=== PATIENT | male | born 1985 | race Caucasian/White ===

== ENCOUNTER 2020-07-26 14:02 | Outpatient (REF) | payer OTHER, SELFPAY ==
[2020-07-26 19:18] LABS: Anion Gap 8.1 mmol/L (3-11); BUN 18 mg/dL (7-18); CO2 28.9 mmol/L (21.0-32.0); CREATININE 1.15 mg/dL (0.70-1.30); Calcium 9.1 mg/dL (8.5-10.1); Calculated LDL 99 mg/dL (<100); Chloride 103 mmol/L (98-107); Cholesterol 169 mg/dL (<200); Glucose 88 mg/dL (74-106); HDL Cholesterol 63 mg/dL (40-60); Potassium 4.7 mmol/L (3.5-5.1); Sodium 140 mmol/L (136-145); Triglyceride 37 mg/dL (<150)
== END 2020-07-26 14:22 ==
LOC: NCHCN 14:02
PROVIDERS: PCP Nurse Practitioner; Visit Provider Physician Assistant
DX: Z13.220 Encounter for screening for lipoid disorders (principal)
CPT/HCPCS: 80048; 80061

== ENCOUNTER 2021-08-27 03:09 | Outpatient (CLI) | payer OTHER, SELFPAY ==
[2021-08-27 07:38] LABS: Abs Immature Grans 0.05 10^3/uL (0.0-0.06); Absolute Basophil Count 0.04 10^3/uL (0.0-0.2); Absolute Eosinophil Count 0.19 10^3/uL (0.0-0.7); Absolute Lymphocyte Count 4.26 10^3/uL (1.2-3.4); Absolute Monocyte Count 0.83 10^3/uL (0.1-0.8); Absolute Neutrophil Count 3.87 10^3/uL (1.2-6.7); Basophils % 0.4; Eosinophils % 2.1; HCT 47.6 % (40.0-50.0); HGB 15.7 g/dL (13.5-17.5); Immature Grans % 0.5; Lymphocytes % 46.1; MPV 10.2 fL (8.0-11.0); Neutrophils % 41.9; Nucleated RBC 0 %; Platelet Count 259 10^3/uL (130-400); RBC 5.23 10^6/uL (4.36-5.78); RDW 13.4 % (11.8-14.1); RDW-SD 45.3 fL; WBC 9.24 10^3/uL (4.4-10.8)
[2021-08-27 07:56] LABS: ESR < 1 mm/hr (0-15)
[2021-08-27 09:24] LABS: ALT 33 U/L (16-63); AST 16 U/L (15-37); Albumin 3.9 g/dL (3.4-5.0); Alkaline Phosphatase 62 U/L (46-116); Anion Gap 5.8 mmol/L (3-11); BUN 15 mg/dL (7-18); Bilirubin, Total 0.6 mg/dL (0.2-1.0); CO2 32.2 mmol/L (21.0-32.0); CREATININE 1.2 mg/dL (0.70-1.30); Calcium 9.1 mg/dL (8.5-10.1); Chloride 102 mmol/L (98-107); Glucose 96 mg/dL (74-106); Potassium 4.4 mmol/L (3.5-5.1); Sodium 140 mmol/L (136-145); TSH (W/Ref FT4) 2.66 uIU/mL (0.36-3.74)
[2021-08-27 09:58] LABS: C-Reactive Protein 0.06 mg/dL (0.0-0.3); Uric Acid 5.4 mg/dL (3.5-7.2)
[2021-08-27 16:15] LABS: Rheumatoid Factor <8.6 IU/mL (<12.0)
[2021-08-28 11:27] LABS: Lyme Ab w Rflx to Lyme Confirm Negative (Negative)
[2021-08-28 12:25] LABS: Hepatitis C Ab w Rflx HCV PCR Negative (Negative)
[2021-08-28 14:38] LABS: HIV-1/2 Ag & Ab Screen Negative (Negative)
== END 2021-08-27 03:10 | disposition home or self-care (01) ==
LOC: LBO 03:10
PROVIDERS: PCP Family Medicine; Visit Provider Family Medicine
DX: M19.049 Primary osteoarthritis, unspecified hand (principal); Z11.59 Encounter for screening for other viral diseases; Z13.6 Encounter for screening for cardiovascular disorders; I10 Essential (primary) hypertension; Z11.4 Encounter for screening for human immunodeficiency virus [HIV]
CPT/HCPCS: 36415; 80053; 85652; 86803; 87389; 84443; 84550; 85025; 86140; 86431; 86618

== ENCOUNTER 2021-11-28 07:53 | Outpatient (REF) | payer OTHER, SELFPAY ==
[2021-12-01 22:02] LABS: Pancreatic Elastase, F >500 mcg/g
[2021-12-01 22:10] LABS: Calprotectin <50.0 mcg/g
== END 2021-11-28 07:54 | disposition home or self-care (01) ==
LOC: LBN 07:53
PROVIDERS: PCP Family Medicine; Visit Provider Nurse Practitioner Family
DX: R19.7 Diarrhea, unspecified (principal); K58.0 Irritable bowel syndrome with diarrhea; R19.8 Other specified symptoms and signs involving the digestive system and abdomen; K62.5 Hemorrhage of anus and rectum; K90.49 Malabsorption due to intolerance, not elsewhere classified
CPT/HCPCS: 87329; 87493; 87505; 82656; 83993

== ENCOUNTER 2021-12-17 12:38 | Outpatient (REF) | payer OTHER, SELFPAY ==
[2021-12-17 16:01] LABS: C Diff PCR Negative (Negative)
[2021-12-18 11:06] LABS: Campylobacter PCR Negative (Negative); Salmonella PCR Negative (Negative); Shiga Toxin PCR Negative (Negative); Shigella/Enteroinvasive Ecoli Negative (Negative)
== END 2021-12-17 12:39 | disposition home or self-care (01) ==
LOC: LBN 12:38
PROVIDERS: PCP Nurse Practitioner Family; Visit Provider Nurse Practitioner Family
DX: K58.0 Irritable bowel syndrome with diarrhea; R19.8 Other specified symptoms and signs involving the digestive system and abdomen; K62.5 Hemorrhage of anus and rectum; K90.49 Malabsorption due to intolerance, not elsewhere classified
CPT/HCPCS: 87493; 87505

== ENCOUNTER 2022-02-13 15:25 | Outpatient (CLI) | payer OTHER, SELFPAY ==
[2022-02-16 15:41] LABS: TB Interpretation Negative (Negative); TB1 Ag minus Nil 0.03 IU/ml
== END 2022-02-13 15:26 | disposition home or self-care (01) ==
LOC: LBO 15:26
PROVIDERS: PCP Nurse Practitioner Family; Visit Provider Nurse Practitioner Family
DX: Z02.1 Encounter for pre-employment examination (principal); Z11.1 Encounter for screening for respiratory tuberculosis
CPT/HCPCS: 86480

== ENCOUNTER 2024-12-21 01:50 | Outpatient (CLI) | payer OTHER, SELFPAY ==
[2024-12-21 15:16] LABS: Hemoglobin A1C 5.3 % (<5.7)
[2024-12-21 16:12] LABS: ALT 37 U/L (16-63); AST 26 U/L (15-37); Albumin 3.9 g/dL (3.4-5.0); Alkaline Phosphatase 83 U/L (46-116); Anion Gap 8.1 mmol/L (3-11); BUN 22 mg/dL (7-18); Bilirubin, Total 0.4 mg/dL (0.2-1.0); CO2 28.9 mmol/L (21.0-32.0); CREATININE 1.2 mg/dL (0.70-1.30); Calculated LDL 83 mg/dL (<100); Chloride 103 mmol/L (98-107); Cholesterol 175 mg/dL (<200); Glucose 70 mg/dL (74-106); HDL Cholesterol 61 mg/dL (>or=40); Potassium 3.8 mmol/L (3.5-5.1); Sodium 140 mmol/L (136-145); Total Protein 7.5 g/dL (6.4-8.2); Triglyceride 157 mg/dL (<150)
== END 2024-12-21 01:51 | disposition home or self-care (01) ==
LOC: LBO 01:50
PROVIDERS: PCP Nurse Practitioner Family; Visit Provider Nurse Practitioner Family
DX: R03.0 Elevated blood-pressure reading, without diagnosis of hypertension (principal); Z13.220 Encounter for screening for lipoid disorders; Z13.1 Encounter for screening for diabetes mellitus
CPT/HCPCS: 36415; 80053; 80061; 83036